=== PATIENT | male | born 2000 | race Caucasian/White ===

== ENCOUNTER 2024-12-13 22:58 | Emergency (ER) | payer MEDICAID ==
[2024-12-13] MEDS: cefTRIAXone 1 GM, Lidocaine 1% 2.1 ML IM ONE (23:48)
== END 2024-12-14 | disposition home or self-care (01) ==
LOC: JP.ED 22:58
DX: J03.00 Acute streptococcal tonsillitis, unspecified (principal)
CPT/HCPCS: 87651; 96372; 99284; J0696; J2003; 99283